=== PATIENT | male | born 1980 | race African-American/Black ===

== ENCOUNTER → 2021-03-31 17:30 | Outpatient (CLI) | payer OTHER, SELFPAY ==
--- NOTE | 2021-03-31 17:34 | DI.MRI.S_ITS ---
PROCEDURE: MR KNEE RT WO CON INDICATIONS: PAIN IN RIGHT KNEE TECHNIQUE: Noncontrast sagittal PD fast spin echo and T2 fast spin echo with fat saturation, sagittal 3-D FLASH with fat saturation; coronal T1 spin echo and PD fast spin echo with fat saturation, and axial PD fast spin echo with fat saturation through the knee. COMPARISON: None. FINDINGS: Image quality: Excellent. Menisci: There is mild T2 signal elevation at the posterior meniscal capsular junction of the posterior horn medial meniscus. There is vague linear vertically oriented high signal intensity within the medial meniscal body/posterior horn, demonstrating inferior articular surface extension, indicating radial undersurface tearing (series 10, image 23). There is linear oblique high signal intensity within the anterior horn lateral meniscus, demonstrating superior articular surface extension, indicating oblique tearing. Cruciate ligaments: The anterior and posterior cruciate ligaments appear intact. Medial structures: The medial collateral ligament appears intact. Visualized portions of the pes anserinus tendons appear normal. No abnormal bursal fluid. Lateral structures: The lateral collateral ligament, long and short heads of the biceps femoris tendon appear intact. The popliteus tendon appears normal. Iliotibial band appears normal. Anterior structures: The quadriceps and patellar tendons appear intact. Patellar alignment is normal. No femoral trochlear dysplasia or ventral trochlear prominence. Mild edema in the superolateral aspect of the infrapatellar fat pad. Bones and cartilage: No bone marrow contusions or fractures. Mild articular cartilage loss diffusely overlies the weight-bearing aspects of the medial femoral condyle and medial tibial plateau. Mild articular cartilage loss overlies the lateral patellar facet inferiorly. Joint space: There is a small knee joint effusion and a small Esqueda's cyst. Normal appearing synovial plicae are incidentally noted. IMPRESSION: 1. Tricompartmental osteoarthritis with associated articular cartilage loss. 2. Findings consistent with mild/early lateral patellofemoral friction syndrome in the appropriate clinical setting. 3. Medial and lateral meniscal tearing. 4. Knee joint effusion and Esqueda's cyst. Dictated by: Marlo Cantrell M.D. on 04/03/2021 at 8:11 Approved by: Marlo Cantrell M.D. on 04/03/2021 at 8:13
== END ==
DX: M25.561 Pain in right knee (principal); M17.11 Unilateral primary osteoarthritis, right knee; S83.241A Other tear of medial meniscus, current injury, right knee, initial encounter; S83.281A Other tear of lateral meniscus, current injury, right knee, initial encounter
CPT/HCPCS: 73721

== ENCOUNTER → 2021-06-15 17:57 | Outpatient (CLI) | payer OTHER, SELFPAY ==
--- NOTE | 2021-06-15 17:59 | DI.MRI.S_ITS ---
PROCEDURE: MR KNEE LT WO CON INDICATIONS: Pain in unspecified knee-LEFT TECHNIQUE: Noncontrast sagittal PD fast spin echo and T2 fast spin echo with fat saturation, sagittal 3-D FLASH with fat saturation; coronal T1 spin echo and PD fast spin echo with fat saturation, and axial PD fast spin echo with fat saturation through the knee. COMPARISON: [facility], MR, MR KNEE RT WO CON, 03/31/2021, 17:51. FINDINGS: Image quality: Excellent. Menisci: The medial and lateral menisci demonstrate normal morphology and internal signal. The meniscal root ligaments appear intact. Cruciate ligaments: The anterior and posterior cruciate ligaments appear intact. Medial structures: The medial collateral ligament appears intact. The visualized portions of the pes anserinus tendons appear normal. No abnormal bursal fluid. Lateral structures: The lateral collateral ligament complex is intact. The popliteus tendon appears normal. The iliotibial band appears normal. Anterior structures: The quadriceps and patellar tendons appear intact. Patellar alignment is maintained. No edema in the infrapatellar fat pad. Bones and cartilage: No bone marrow contusions or fractures. The cartilage of the medial and lateral femorotibial compartments, as well as the patellofemoral compartment, appears normal in thickness. A fabella is noted. Prominent superior patellar enthesophyte. Joint space: There is physiologic knee joint fluid. A 4.2 x 0.8 x 4.4 cm T2 hyperintense lesion is seen in the popliteal fossa. IMPRESSION: 1. Cystic-appearing lesion in the popliteal fossa, which may reflect a Esqueda cyst. Dictated by: Hernando Ewing M.D. on 06/16/2021 at 7:53 Approved by: Hernando Ewing M.D. on 06/16/2021 at 8:02
== END ==
PROVIDERS: Referring Provider Internal Medicine; Visit Provider Internal Medicine
DX: M25.562 Pain in left knee (principal)
CPT/HCPCS: 73721

== ENCOUNTER → 2021-10-06 13:47 | Outpatient (CLI) | payer OTHER, SELFPAY ==
--- NOTE | 2021-10-06 | DI.RAD.S_ITS ---
PROCEDURE: FL SHOULDER INJECTION MR/CT LT INDICATIONS: LEFT SHOULDER PAIN COMPARISON: None. TECHNIQUE: The indications, alternatives, benefits, risks, and complications of the procedure were explained to the patient. Written informed consent was obtained and placed in the chart. The shoulder was examined fluoroscopically and a site for needle placement chosen for entry into the glenohumeral joint from an anterior approach. The skin was prepped and draped in a sterile fashion, and 1% lidocaine infiltrated from skin down to joint capsule. A spinal needle was inserted into the glenohumeral joint, and a small amount of iodinated contrast media injected to confirm intra-articular placement of the needle tip. This was followed by approximately 12 mL dilute solution of a gadolinium containing MR contrast agent. The needle was removed and a dressing was applied. The patient was given postprocedural instructions and sent to the MR suite for MR imaging. FINDINGS: A single fluoroscopic spot image demonstrates intra-articular location of injected iodinated contrast. IMPRESSION: Successful fluoroscopically guided administration of dilute Gadolinium solution into the shoulder joint for MR arthrogram. Dictated by: Disha Talavera MD, PhD on 10/06/2021 at 17:09 Approved by: Disha Talavera MD, PhD on 10/06/2021 at 17:09
--- NOTE | 2021-10-06 | DI.MRI.S_ITS ---
PROCEDURE: MR SHOULDER LT W CON INDICATIONS: LEFT SHOULDER PAIN TECHNIQUE: After the administration of 12 mL of dilute intra-articular Gadolinium contrast, oblique coronal T1 and T2 spin echo with fat saturation, oblique sagittal T1 spin echo with and without fat saturation, oblique sagittal T2 fast spin echo with fat saturation, axial T1 spin echo with fat saturation through the shoulder. COMPARISON: [facility], CR, XR SHOULDER 2+ VIEWS LEFT, 07/10/2016, 12:18. FINDINGS: Image quality: Degraded by patient motion artifact. Rotator cuff: There is a high-grade, near complete, partial, undersurface tear of the supraspinatus tendon. The infraspinatus, and subscapularis tendons appear intact throughout. No rotator cuff muscle atrophy on sagittal images. Bones and bursae: No bone marrow contusions or fractures. No acromioclavicular joint degeneration. The distal acromion is downsloping. No os acromiale. Capsule and soft tissues: There is a tear of the superior labrum. The glenohumeral ligaments appear intact. The long head of the biceps tendon demonstrates normal location and morphology. The rotator interval appears normal, without fibrosis. The coracohumeral ligament is of normal thickness. No intra-articular bodies. IMPRESSION: 1. Near complete, high-grade, partial undersurface tear of the supraspinatus tendon. 2. Superior labral tear. 3. Severely downsloping acromion. Dictated by: Disha Talavera MD, PhD on 10/06/2021 at 17:04 Approved by: Disha Talavera MD, PhD on 10/09/2021 at 10:37
== END ==
PROVIDERS: Referring Provider Orthopaedic Surgery; Visit Provider Orthopaedic Surgery
DX: M75.112 Incomplete rotator cuff tear or rupture of left shoulder, not specified as traumatic (principal); S43.492A Other sprain of left shoulder joint, initial encounter; M25.512 Pain in left shoulder
CPT/HCPCS: 23350; 73222; 77002